=== PATIENT | female | born 1980 | race African-American/Black ===

== ENCOUNTER 2019-07-03 00:18 | Inpatient (IN) | payer SELFPAY ==
[~2019-07-03] VITALS: Ht 160 cm; Wt 65.8 kg
[2019-07-03] MEDS: LACTATED RINGERS 1,000 ML IV SCH ×2 (01:45→07:01)
[2019-07-03] MEDS ORDERED: DEXT 5%/LR + PITOCIN 20UNITS/L 1,000 ML IV SCH ×2 (01:53→13:49)
[2019-07-03] MEDS ORDERED: BUTORPHANOL TARTRATE 2 MG/ML VIAL IV PRN (02:00)
[2019-07-03] MEDS ORDERED: METHYLERGONOVINE MALEATE 0.2 MG/ML IM PRN (02:00)
[2019-07-03] MEDS ORDERED: LIDOCAINE HCL 1% 20ML VIAL (Pyxis) INJ INFIL SCH (02:00)
[2019-07-03] MEDS ORDERED: NALOXONE HCL 0.4 MG/ML 1ML VIAL IM PRN (02:00)
[2019-07-03] MEDS ORDERED: MISOPROSTOL 100MCG TABLET VG PRN (02:00)
[2019-07-03 02:18] LABS: HEMATOCRIT. 30.6 % (36.0-48.0); HEMOGLOBIN. 10.4 g/dL (12.0-16.0); MEAN CORPUSCULAR HEMOGLOBIN 28.4 pg (28.0-32.0); MEAN CORPUSCULAR VOLUME 83.9 fL (81.0-99.0); PLATELET 205 x1000/uL (130-400); RED BLOOD CELL COUNT 3.65 mill/uL (4.2-5.4); RED CELL DISTRIBUTION WIDTH 14.7 % (11.6-14.6)
[2019-07-03 02:20] LABS: CLARITY URINE CLOUDY (CLEAR); COLOR URINE YELLOW (YELLOW); KETONES URINE NEGATIVE (NEGATIVE); LEUKOCYTE ESTERASE URINE 2+ (NEGATIVE); NITRITE URINE NEGATIVE (NEGATIVE); OCCULT BLOOD URINE NEGATIVE (NEGATIVE); PROTEIN URINE NEGATIVE (NEGATIVE); UROBILINOGEN URINE 0.2 E.U./dL (0.2-1.0)
[2019-07-03 02:24] LABS: INR 0.9; PARTIAL THROMBOPLASTIN TIME 27.9 sec (23.4-31.0); PROTHROMBIN TIME 9.5 sec (9.6-11.0)
[2019-07-03 02:29] LABS: *BARBITURATES SCREEN URINE NEGATIVE (NEGATIVE); *COCAINE SCREEN URINE NEGATIVE (NEGATIVE)
[2019-07-03 02:30] LABS: *AMPHETAMINES SCREEN URINE NEGATIVE (NEGATIVE); *BENZODIAZEPINES SCREEN URINE NEGATIVE (NEGATIVE); METHADONE URINE SCREEN NEGATIVE (NEGATIVE); OPIATES URINE SCREEN NEGATIVE (NEGATIVE); PHENCYCLIDINE URINE SCREEN NEGATIVE (NEGATIVE)
[2019-07-03 02:31] LABS: CANNABINOID URINE SCREEN NEGATIVE (NEGATIVE)
[2019-07-03 03:31] LABS: PLATELET ESTIMATE NORMAL
[2019-07-03] MEDS ORDERED: ROPIVACAINE HCL/PF EPIDURAL 200 ML EPI SCH (09:00)
[2019-07-03] MEDS ORDERED: INFLUENZA VIRUS VACCINE(AFLURIA) 0.5ML SYR IM ONE (12:00)
[2019-07-03] MEDS ORDERED: LACTATED RINGERS 1,000 ML IV SCH (12:15)
[2019-07-03] MEDS ORDERED: IBUPROFEN 400MG TABLET PO PRN (14:00)
[2019-07-03] MEDS ORDERED: IBUPROFEN 800MG TABLET PO PRN (14:00)
[2019-07-03] MEDS ORDERED: RHO(D) IMMUNE GLOBULIN 300 MCG/SYR IM PRN (14:00)
[2019-07-03 14:27] LABS: HEPATITIS B SURFACE ANTIGEN NEGATIVE
[2019-07-03 16:50] VITALS: BP 98/66
[2019-07-03 17:34] VITALS: BP 100/61
[2019-07-03] MEDS: IBUPROFEN 800MG TABLET PO PRN (18:12)
[2019-07-03 22:00] VITALS: BP 98/51
[2019-07-04 06:00] VITALS: BP 101/59
[2019-07-04] MEDS: IBUPROFEN 800MG TABLET PO PRN (08:29)
[2019-07-04 09:30] VITALS: BP 101/60
== END 2019-07-04 15:45 | disposition home or self-care (01) | DRG 560 ==
LOC: 8 EST LDRP 00:18 → OBSVTOIN 00:18 → 8EST 16:30 → UNDODISOB 16:30
PROVIDERS: ADMIT Obstetrics & Gynecology; ATTEND Obstetrics & Gynecology
PROC: 10E0XZZ Delivery of Products of Conception, External Approach (ICD-10-PCS; principal; 2019-07-03)
PROC: 3E0R3BZ Introduction of Anesthetic Agent into Spinal Canal, Percutaneous Approach (ICD-10-PCS; 2019-07-03)
PROC: 00HU33Z Insertion of Infusion Device into Spinal Canal, Percutaneous Approach (ICD-10-PCS; 2019-07-03)
DX: O69.81X0 Labor and delivery complicated by cord around neck, without compression, not applicable or unspecified (principal); D62 Acute posthemorrhagic anemia; O99.03 Anemia complicating the puerperium; Z37.0 Single live birth; Z3A.40 40 weeks gestation of pregnancy; Z82.5 Family history of asthma and other chronic lower respiratory diseases
CPT/HCPCS: 36415; 80305; 81003; 83735; 86592; 86703; 86762; 86850; 86900; 87340; 90686; G0378; J2590; J2795; J7120